=== PATIENT | male | born 1965 | race Caucasian/White ===

== ENCOUNTER 2020-04-06 10:09 | Emergency (ER) | payer BC, MEDICARE ==
--- NOTE | 2020-04-06 10:25 | EDM.PDOC ---
ED HPI GENERAL MEDICAL PROBLEM - General Stated Complaint: CHEST PAINS EAR PROBLEMS Time Seen by Provider: 04/06/20 10:40 Source of Information: Reports: Patient, Old Records, RN, RN Notes Reviewed - History of Present Illness INITIAL COMMENTS - FREE TEXT/NARRATIVE: Patient presents to the ED via personal vehicle for multiple complaints, including chest pain for three weeks, pain/odor in right ear, and headache. The patient states he has experienced similar bouts of chest pain over the years and has been diagnosed with angina, he states this pain feels "different." He characterizes the chest pain as "sharp" in nature and originates in his left chest; this pain does cause him to become short of breath, but he is short of breath at baseline. He states this pain occasionally radiates into his left arm and into his left jaw/face. He states this pain lasts about one to five minutes before it spontaneously stops. He does attest to this pain waking him from sleep; the latest episode occurred this morning at 0400. He attests to vision changes and nausea during these episodes that also dissipates when the pain stops. He denies recent illness, fever, shaking chills, palpitations, vomiting, diarrhea, hematochezia, or melena. The patient reports a history of cerumen impaction for which he applies "wax drops" to both ears. He states he has been out of the drops and has been utilizing alcohol, peroxide, and cotton swabs to clean his ears over the past few days. He states this morning he was cleaning his ears with this method and noted foul smelling odor coming from his right ear; he now notes pain this ear. Additionally, the patient states he has been experiencing daily headache for which he takes Excedrin 250/250/65mg TID. He reports taking this medication at this frequency, "...for years." He does a ttest to requiring glasses for vision, but he does not like to wear them. The patient attests to a history of cigarette smoke with a quit date in 2019. He denies alcohol or recreational drug use. - Related Data Allergies Allergy/AdvReac Type Severity Reaction Status Date / Time aspirin Allergy Nose Bleeds Verified 12/02/14 10:17 erythromycin base Allergy Nausea and Verified 12/02/14 10:17 [Erythromycin Base] Vomiting gabapentin [From Neurontin] Allergy Dizziness Verified 12/02/14 10:17 lisinopril Allergy Cough Verified 12/02/14 10:17 tramadol Allergy Seizure Verified 12/02/14 10:17 Home Meds: Home Meds Atenolol [Tenormin] 100 mg PO BID 03/07/14 [History] Albuterol Sulfate [Proair Respiclick] 1 - 2 puff INH Q6H PRN 12/02/14 [History] Albuterol [Proventil Neb Soln] 2.5 mg INH Q6HR PRN 12/02/14 [History] Ascorbic Acid 500 mg PO DAILY 12/02/14 [History] Ibuprofen 200 mg PO BID PRN 05/05/18 [History] Irbesartan [Avapro] 300 mg PO DAILY 05/05/18 [History] Secukinumab [Cosentyx Syringe] 300 mg SQ ASDIRECTED 05/05/18 [History] Sodium Chloride [Saline Nasal [place]] 1 - 2 spray NASBOTH ASDIRECTED PRN 05/05/18 [History] cloNIDine HCL [Catapres] 0.3 mg PO BID 05/05/18 [History] traZODone HCl [Trazodone HCl] 50 mg PO BEDTIME 05/05/18 [History] Secukinumab [Cosentyx (2 Syringes)] 150 mg SQ WEEKLY 04/06/20 [History] Past Medical History Other HEENT History: RHINITIS, TINNITIS TO RIGHT EAR Other Respiratory History: PLEURODYNIA; PLEURISY; Other Gastrointestinal History: HEPATITIS C GENOTYPE 5a; HEMATOCHEZIA; ENTEROCOLITIS; GASTRIC ANTRAL EROSIONS; DIVERTICULOSIS Other Genitourinary History: URINARY FREQUENCY; RENAL INSUFFICIENCY R/T TO HYPERTENSIVE NEPHROSCLEROSIS, SMALL RENAL CYSTS Other Musculoskeletal History: LUMBOSACRAL SPONDYLOSIS; DJD LEFT KNEE & NECK; OSTOMYELITIS RT FEMUR; CERVICAL DYSTONIA Other Psychiatric History: PAST ALCOHOLISM Other Dermatologic History: CELLULITUS OF LEG CHRONIC; LEFT ANTERIOR NECK MASS - Past Surgical History Other Male Surgeries/Procedures: CYSTOSCOPY Other Musculoskeletal Surgeries/Procedures:: RIGHT AKA ED ROS GENERAL - Review of Systems Review Of Systems: Comprehensive ROS is negative, except as noted in HPI. ED EXAM, GENERAL - Physical Exam Exam: See Below Exam Limited By: No Limitations General Appearance: Alert, No Apparent Distress, Obese Eye Exam: Bilateral Eye: EOMI, Normal Inspection, PERRL (3mm) Ears: Normal External Exam, Hearing Grossly Normal. No: Normal TMs Ear Exam: Right Ear: Erythema, Swelling, Tenderness, TM Perforation, Left Ear: Canal Normal, TM normal, Bilateral Ear: Auricle Normal Nose: Normal Inspection, Nasal Drainage, Clear Rhinorrhea. No: Nasal Swelling Throat/Mouth: Normal Inspection, Normal Voice, No Airway Compromise Head: Atraumatic, Normocephalic Neck: Normal Inspection, Supple, Non-Tender, Full Range of Motion. No: Lymphadenopathy (L), Lymphadenopathy (R) Respiratory/Chest: No Respiratory Distress, No Accessory Muscle Use, Chest Non- Tender, Rales (To bilateral lower lobes), Wheezing (Expiratory wheezes to bilateral upper lobes) Cardiovascular: Normal Peripheral Pulses, Regular Rate, Rhythm, No Gallop, No JVD, No Murmur, No Rub, Extra Beats. No: No Edema Peripheral Pulses: 1+: Dorsalis Pedis (L), 2+: Radial (L), Radial (R) GI/Abdominal: Normal Bowel Sounds, Soft, Non-Tender, No Distention, No Mass, Pelvis Stable (Male) Exam: Deferred Rectal (Males) Exam: Deferred Back Exam: Normal Inspection, Full Range of Motion. No: CVA Tenderness (L), CVA Tenderness (R) Extremities: Non-Tender, Normal Capillary Refill, Pedal Edema (+2 pitting to bilateral lower extremities), Other (R AKA) Neurological: Alert, Oriented, CN II-XII Intact, Normal Cognition, Normal Gait, No Motor/Sensory Deficits Psychiatric: Normal Affect, Normal Mood Skin Exam: Warm, Intact, Normal Color, No Rash, Diaphoretic. No: Ecchymosis, Erythema, Mottled, Pallor, Petechiae #1 Interpretation EKG Date: 04/06/20 Time: : Rhythm: NSR Rate (Beats/Min): 78 [place]: Normal P-Wave: Present QRS: Normal ST-T: Normal QT: Prolonged (502) Comparison: NA - No Prior EKG EKG Interpretation Comments: NSR; No evidence of acute ischemia Course - Vital Signs Last Recorded V/S: Last Vital Signs Temp 97.2 F 04/06/20 10:32 Pulse 69 04/06/20 10:32 Resp 18 04/06/20 10:32 BP 127/78 04/06/20 10:32 Pulse Ox 99 04/06/20 10:32 - Orders/Labs/Meds Orders: Active Orders 24 hr Category Date Time Status CULTURE BLOOD [BC] Stat Lab 04/06/20 10:25 Ordered Labs: Laboratory Tests 04/06/20 04/06/20 04/06/20 Range/Units 10:28 10:28 10:35 WBC 10.1 H (5.0-10.0) 10^3/uL RBC 5.03 (4.6-6.2) 10^6/uL Hgb 15.1 (14.0-18.0) g/dL Hct 42.9 (40.0-54.0) % MCV 85.3 (80-100) fL MCH 30.0 (27.0-34.0) pg MCHC 35.2 H (33.0-35.0) g/dL Plt Count 296 (150-450) 10^3/uL Neut % (Auto) 70.7 (42.2-75.2) % Lymph % (Auto) 17.1 L (20.5-50.1) % [place] % (Auto) 6.5 (2-8) % Eos % (Auto) 4.8 H (1.0-3.0) % Baso % (Auto) 0.9 (0.0-1.0) % Sodium 135 L (136-145) mmol/L Potassium 3.7 (3.5-5.1) mmol/L Chloride 101 (98-107) mmol/L Carbon Dioxide 23 (21-32) mmol/L Anion Gap 14.7 H (7-13) mEq/L BUN 12 (7-18) mg/dL Creatinine 1.10 (0.70-1.30) mg/dL Est Cr Clr Drug Dosing 78.36 mL/min Estimated GFR (MDRD) > 60 BUN/Creatinine Ratio 10.9 (No establ ref range) Glucose 156 H (74-99) mg/dL Lactic Acid 1.9 (0.4-2.0) mmol/L Calcium 9.2 (8.5-10.1) mg/dL Total Bilirubin 0.3 (0.2-1.0) mg/dL AST 18 (15-37) U/L ALT 39 (16-63) U/L Alkaline Phosphatase 82 (46-116) U/L Troponin I < 0.017 (0.000-0.056) ng/mL Total Protein 7.4 (6.4-8.2) g/dL Albumin 3.7 (3.4-5.0) g/dL Globulin 3.7 Albumin/Globulin Ratio 1.0 - Re-Assessments/Exams Free Text/Narrative Re-Assessment/Exam: 04/06/20 Cardiac work up negative for acute processes. Will treat otitis media with Augmentin and Cipro Dex drops. Patient states he is currently on omeprazole 20mg for chronic GERD, so will not treat for peptic ulcer despite increased Aspirin use; discussed decreasing aspirin use with patient given it's gastrointestinal effects. Discussed importance of following up with primary care provider more frequently for ongoing medical management, as well as a possible cardiology/gastroenterology referral. Departure - Departure Time of Disposition: 12:38 Disposition: Home, Self-Care 01 Condition: Good Clinical Impression: Angina at rest Ruptured tympanic membrane Qualifiers: Laterality: right Qualified Code(s): H72.91 - Unspecified perforation of tympanic membrane, right ear Otitis media Qualifiers: Otitis media type: suppurative Chronicity: acute Laterality: right Recurrence: non-recurrent Spontaneous tympanic membrane rupture: with spontaneous rupture Qualified Code(s): H66.011 - Acute suppurative otitis media with spontaneous rupture of ear drum, right ear Instructions: Otitis Media, Adult, [id number], Eardrum Rupture, [id number] Forms: ED Department Discharge Additional Instructions: Rx: Cipro Drops Rx: Augmentin 1.) Follow up with your primary care provider early next week regarding today's visit; discuss the possibility of needing a cardiology referral. 2.) Take all of your oral antibiotics until they are gone. 3.) Drink plenty of fluids to stay hydrated. 4.) Return to the emergency room with any worsening chest pain or shortness of breath that does not go away. - My Orders Last 24 Hours: My Active Orders 04/06/20 10:25 CULTURE BLOOD [BC] Stat - Assessment/Plan Last 24 Hours: My Active Orders 04/06/20 10:25 CULTURE BLOOD [BC] Stat
[2020-04-06 10:36] VITALS: BP 127/78; PULSE 69
[2020-04-06 11:09] LABS: ANION GAP 14.7 mEq/L (7-13); CHLORIDE,CL 101 mmol/L (98-107); SODIUM,NA 135 mmol/L (136-145)
--- NOTE | 2020-04-06 12:34 | CR ---
EXAMINATION: Chest 1V Frontal SEX: Male AGE: 54 years CLINICAL HISTORY: 54-year-old male with chest pain (3 weeks) and shortness of breath. Comparison films 12 Sep 2012. Interpretation: Negative exam. 1. Normal cardiac silhouette (size and configuration). External lumber sorter machine leads. 2. No pulmonary vascular congestion, cephalization of flow, alveolar edema or dependent pleural effusion. 3. No lung mass or hilar lymphadenopathy. 4. No new focal lobar consolidation (infiltrate/atelectasis). No peripheral "groundglass" lung densities. 5. No pneumothorax or pneumomediastinum. Natalie thorax unremarkable. CONCLUSION: No acute new cardiopulmonary abnormality since August 2012 exam.
== END 2020-04-06 13:02 | disposition home or self-care (01) ==
LOC: DL.ED 10:09
DX: I20.9 Angina pectoris, unspecified (principal); H66.011 Acute suppurative otitis media with spontaneous rupture of ear drum, right ear; Z88.6 Allergy status to analgesic agent; Z88.1 Allergy status to other antibiotic agents; Z88.5 Allergy status to narcotic agent; Z88.8 Allergy status to other drugs, medicaments and biological substances; Z79.899 Other long term (current) drug therapy
CPT/HCPCS: 36415; 71045; 80053; 83605; 84484; 85025; 87040; 93005; 99285-25

== ENCOUNTER 2024-10-04 10:11 | Emergency (ER) | payer BC, MEDICARE ==
[2024-10-04] MEDS: Ketorolac 30 MG/ML SDV IVPUSH ONE (10:43)
[2024-10-04] MEDS: Dexamethasone 4 MG/ML SDV IVPUSH ONE (12:02)
[2024-10-04 12:21] VITALS: BP 126/84; PULSE 56
== END 2024-10-04 12:09 | disposition home or self-care (01) ==
LOC: DL.ED 10:11
DX: M51.360 Other intervertebral disc degeneration, lumbar region with discogenic back pain only (principal); I25.10 Atherosclerotic heart disease of native coronary artery without angina pectoris; E78.00 Pure hypercholesterolemia, unspecified; I10 Essential (primary) hypertension; J44.9 Chronic obstructive pulmonary disease, unspecified; Z95.5 Presence of coronary angioplasty implant and graft; Z79.899 Other long term (current) drug therapy; Z79.51 Long term (current) use of inhaled steroids; Z79.02 Long term (current) use of antithrombotics/antiplatelets; Z79.82 Long term (current) use of aspirin
CPT/HCPCS: 72131; 72192; 96374; 96375; 99284-25; J1100; J1885